=== PATIENT | female | born 1980 | race Caucasian/White ===

== ENCOUNTER 2024-09-10 11:56 | Emergency (ER) | payer OTHER, SELFPAY ==
[2024-09-10 11:58] VITALS: BP 138/82
[2024-09-10 12:30] LABS: % Basophils 0.6 % (0-2); % Eosinophils 1.8 % (0-6); % Immature Granulocytes 0.4 % (0-0.5); % Lymphocytes 11.7 % (20.5-51.1); % Monocytes 4.8 % (1.7-9.3); % Neutrophils 80.7 % (42.2-75.2); Absolute Basophils 0.1 10^3/uL (0-0.2); Absolute Eosinophils 0.3 10^3/uL (0-0.7); Absolute Immature Granulocytes 0.1 10^3/uL (0-0.05); Absolute Lymphocytes 1.8 10^3/uL (1.2-3.4); Absolute Monocytes 0.8 10^3/uL (0.1-0.6); Absolute Neutrophils 12.7 10^3/uL (1.4-6.5); Hematocrit 42.8 % (37.0-47.0); Hemoglobin 14.1 g/dL (12.0-16.0); Mean Corp Hgb Conc. 32.9 g/dL (33.0-37.0); Mean Corpuscular Hgb 31.1 pg (27.0-31.0); Mean Corpuscular Volume 94.5 fL (81.0-99.0); Mean Platelet Volume 9.4 fL (7.4-10.4); Nucleated Red Blood Cells % 0 %; Platelet Count 278 10^3/uL (130-400); Red Blood Cell Count 4.53 10^6/uL (4.20-5.40); Red Cell Dist. Width 12.9 % (11.5-14.5); White Blood Cell Count 15.7 10^3/uL (4.8-10.8)
[2024-09-10 12:38] LABS: INR 1.02; PT 13.9 Sec (11.4-14.6)
[2024-09-10 12:39] LABS: APTT 34.9 Sec (23.4-35.0)
[2024-09-10 12:40] LABS: HCG, Serum Qualitative Screen Negative
[2024-09-10 12:44] LABS: ALT (SGPT) 19 U/L (0-35); AST (SGOT) 23 U/L (14-36); Albumin 4.2 g/dl (3.5-5.0); Alkaline Phosphatase 80 U/L (38-126); Blood Urea Nitrogen 16 mg/dl (7-17); Calcium 9.9 mg/dl (8.4-10.2); Carbon Dioxide 26 mmol/L (22-30); Chloride 107 mmol/L (98-107); Glucose 101 mg/dl (70-99); Potassium 4.9 mmol/L (3.5-5.1); Sodium 140 mmol/L (135-145); Total Bilirubin 0.7 mg/dl (0.2-1.3); Total Protein 7.1 g/dl (6.3-8.2); eGFR > 60.00
[2024-09-10 12:53] LABS: Troponin I < 0.012 ng/ml
--- NOTE | 2024-09-10 13:01 | ED.GENMED ---
History of Present Illness
General
Chief Complaint: Numbness
Source: patient
Exam Limitations: none
Time Seen by Provider: 09/10/24 12:49
History of Present Illness
History of Present Illness:
43-year-old female presents with 2 to 3 days worth of numbness to the right side of the face starting at the tongue when she realized the right side of her face was drooping now she cannot blink her right eye. There is no significant headache. She
does admit to a cough over the past couple weeks. She denies a rash. She denies double vision blurry vision nausea vomiting. No unilateral arm numbness or weakness. No current fever or chest pain. No other complaints at this time.
Phy Exam
Physical Exam
Physical Exam:
General: Well-appearing female no acute respiratory distress
HEENT: Normocephalic atraumatic heart: Regular rate and rhythm
Lungs: Clear no wheeze
Neurologic exam: Alert and oriented finger-nose [id number] intact. There is a right-sided facial droop noted. Patient is unable to blink her right eye fully and is unable to wrinkle forehead compared to the contralateral side. Tongue is midline
the uvula is midline normal gait
Musculoskeletal exam: No tenderness about the cervical spine
Course
Orders/Labs/Results
Orders:
Orders
09/10/24 12:05
EKG [Electrocardiogram (*1)] Urgent
Reason for Study: Palpitations
09/10/24 12:06
EKG- Treatment ONCE
09/10/24 12:13
CT Head W/o Iv Contrast Urgent
Comment:
Reason For Exam: numbness
Test Result ONCE
09/10/24 12:20
Complete Blood Count/With Diff Urgent
Comprehensive Metabolic Panel Urgent
HCG, Serum Qualitative Screen Urgent
Comment: Notify provider if positive test present
Lyme Progressive Urgent
Comment: ADD ON
PTT Urgent
Prothrombin Time Urgent
Troponin I Urgent
09/10/24 13:00
Add On- LAB Urgent
Tests Added?: lyme progressive
Abnormal Lab Results
09/10/24
12:20
WBC 15.7 H 10^3/uL
(4.8-10.8)
MCH 31.1 H pg
(27.0-31.0)
MCHC 32.9 L g/dL
(33.0-37.0)
Abs Immat Gran (auto) 0.1 H 10^3/uL
(0-0.05)
Absolute Neuts (auto) 12.7 H 10^3/uL
(1.4-6.5)
Absolute Monos (auto) 0.8 H 10^3/uL
(0.1-0.6)
Neutrophils % 80.7 H %
(42.2-75.2)
Lymphocytes % 11.7 L %
(20.5-51.1)
Glucose 101 H mg/dl
(70-99)
09/10/24 12:20
09/10/24 12:20
Vital Signs
Initial and Last Documented VS:
Initial Vital Signs
Temp Pulse Resp BP Pulse Ox
98.6 F 83 16 138/82 99
09/10/24 11:58 09/10/24 11:58 09/10/24 11:58 09/10/24 11:58 09/10/24 11:58
Last Documented Vital Signs
Temp Pulse Resp BP Pulse Ox
98.6 F 76 22 119/77 96
09/10/24 11:58 09/10/24 14:00 09/10/24 14:00 09/10/24 14:00 09/10/24 14:00
MDM/Problems Addressed
Differential Diagnosis Includes:
Right facial numbness and weakness. Consider Crouch's palsy. Exam not consistent with CVA. Question underlying viral illness versus Lyme. Lyme test pending. Will check labs.
*Critical Care Note
Total Time (30-74mins, 75-104mins- exclusive of procedures): Not Applicable
Update Note
Update Note:
CT negative. 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 Lyme test pending but will start on prednisone and Valtrex. Stable for discharge with follow-up
ED Attending Note
-
Portions of this chart may have been created with voice recognition software.� Occasional wrong word or��sound alike� substitutions may have occurred due to the inherent limitations of voice recognition software.
Discharge Plan
Departure
Patient Disposition: Home (Routine Discharge)
Date of Disposition: 09/10/24
Time of Disposition: 16:02
Patient with high blood pressure during this ER visit?: No
Discharge Problem:
Crouch's palsy
Instructions: Crouch's Palsy (DC)
Prescriptions:
New
prednisone 20 mg tablet
60 mg PO DAILY Qty: 15 0RF
valacyclovir [Valtrex] 1 gram tablet
1,000 mg PO TID 7 Days Qty: 21 0RF
Referrals:
Em Alcantara CRNP [Family Provider] -
Activity Restrictions/Additional Instructions:
Use prednisone and Valtrex as directed. You should receive a call if your Lyme titer is positive. Please return here for worsening symptoms otherwise follow-up with your doctor.
Interventions
Interventions:
*Risk Screen - Suicide Last Done: 09/10/24 11:58
*General Assessment Last Done: 09/10/24 11:58
*ED- Fall Risk Assessment Last Done: 09/10/24 13:28
*ED COVID-19 Vaccine History Last Done: 09/10/24 11:58
ED- Neurological Assessment Last Done: 09/10/24 13:28
Discharge Date and Time
Print Language: INDONESIAN
[2024-09-10 13:27] VITALS: BP 121/74; BMI 30.7
[2024-09-10 14:00] VITALS: BP 119/77
[2024-09-10 16:14] VITALS: BP 120/98
== END 2024-09-10 16:16 | disposition home or self-care (01) ==
LOC: EMR 11:56
PROVIDERS: Physician Assistant; EMERGENCY PHYSICIAN Student in an Organized Health Care Education/Training Program; FAMILY PHYSICIAN Nurse Practitioner Adult Health
DX: G51.0 Bell's palsy (principal); R20.0 Anesthesia of skin
CPT/HCPCS: 99284; 70450; 80053; 84484; 84703; 85025; 85610; 85730; 86618; 93005